=== PATIENT | female | born 1985 | race Asian ===

== ENCOUNTER 2016-07-13 21:40 | Inpatient (IN) | payer BC ==
[~2016-07-13] VITALS: Ht 162.6 cm; Wt 88.0 kg
[2016-07-13] MEDS ORDERED: LR 1,000 ML IV SCH ×2 (22:38→22:46)
[2016-07-13] MEDS ORDERED: NIFEdipine 10 MG CAPSULE PO SCH (22:45)
[2016-07-13] MEDS ORDERED: AMPICILLIN SODIUM 2 GM in NS 100 ML IV ONE (23:00)
[2016-07-13 23:02] LABS: BASOPHILS # (AUTO) 0.2 K/uL (0.0-0.2); BASOPHILS % (AUTO) 2.3 % (0.0-2.0); EOSINOPHILS # (AUTO) 0.1 K/uL (0.0-0.4); EOSINOPHILS % (AUTO) 0.6 % (0.0-4.0); HEMATOCRIT 32.2 % (36-48); HEMOGLOBIN 10.4 g/dL (12.0-16.0); LYMPHOCYTES # (AUTO) 2.2 K/uL (1.0-5.5); LYMPHOCYTES % (AUTO) 22.1 % (20.5-51.5); MEAN CORPUSCULAR HEMOGLOBIN 24 pg (27-31); MEAN CORPUSCULAR HGB CONC 32 % (32-36); MEAN CORPUSCULAR VOLUME 73 fL (79.0-98.0); MONOCYTES # (AUTO) 0.5 K/uL (0.0-1.0); MONOCYTES % (AUTO) 5.1 % (1.7-9.3); NEUTROPHILS % (AUTO) 69.9 % (40.0-70.0); PLATELET COUNT (AUTO) 293 K/uL (130-430); RED BLOOD CELL COUNT(AUTO) 4.42 MIL/uL (4.2-6.2); RED CELL DISTRIBUTION WIDTH 15.4 % (9.0-15.0)
[2016-07-13] MEDS ORDERED: NIFEdipine 10 MG CAPSULE PO ONE (23:04)
[2016-07-13] MEDS ORDERED: BETAMET ACET/BETAMET NA PH 30 MG/5 ML VIAL IM ONE (23:05)
[2016-07-13] MEDS ORDERED: AMPICILLIN SODIUM 2 GM VIAL ONE (23:06)
[2016-07-13] MEDS ORDERED: INSULIN REGULAR, HUMAN 100 UNITS/ML, 10 ML VIAL SUBCUT ONE (23:15)
[2016-07-13] MEDS ORDERED: INSULIN REGULAR, HUMAN 100 UNITS/ML, 10 ML VIAL ONE (23:28)
[2016-07-13] MEDS: BETAMET ACET/BETAMET NA PH 30 MG/5 ML VIAL IM SCH (23:30)
[2016-07-14] MEDS ORDERED: MAGNESIUM SULFATE IN WATER 500 ML IV ONE ×2 (00:13→08:30)
[2016-07-14] MEDS ORDERED: MAGNESIUM SULFATE IN WATER 500 ML IV PRN (00:15)
[2016-07-14] MEDS ORDERED: MAGNESIUM SULFATE IN WATER 100 ML IV ONE ×2 (00:15→00:16)
[2016-07-14 01:32] VITALS: BP 146/86; PULSE 99; RESP 16; TEMP 97.1
[2016-07-14] MEDS ORDERED: NIFEdipine 10 MG CAPSULE PO SCH (03:00)
[2016-07-14] MEDS: AMPICILLIN SODIUM 1 GM in NS 50 ML IV SCH ×4 (03:32→15:38)
[2016-07-14] MEDS ORDERED: AMPICILLIN SODIUM 1 GM VIAL ONE ×2 (03:33→07:17)
[2016-07-14] MEDS ORDERED: BETAMET ACET/BETAMET NA PH 30 MG/5 ML VIAL IM ONE (08:30)
[2016-07-14] MEDS: BETAMET ACET/BETAMET NA PH 30 MG/5 ML VIAL IM SCH (10:15)
[2016-07-14] MEDS ORDERED: LR 1,000 ML IV ONE ×2 (10:53→22:20)
[2016-07-14] MEDS ORDERED: CEFAZOLIN 2 GM IVPB PREMIX 50 ML IV ONE ×2 (11:00→21:21)
[2016-07-14 18:42] LABS: BILIRUBIN,URINE NEGATIVE (NEGATIVE); BLOOD, URINE 1+ (NEGATIVE); CLARITY/URINE CLEAR (CLEAR); COLOR,URINE YELLOW (YELLOW); GLUCOSE,URINE NEGATIVE (NEGATIVE); KETONES,URINE 3+ (NEGATIVE); LEUKOCYTE ESTERASE ,URINE NEGATIVE (NEGATIVE); NITRITE, URINE NEGATIVE (NEGATIVE); PROTEIN URINE NEGATIVE (NEGATIVE); UROBILINOGEN,URINE 0.2 (0.2-1.0)
[2016-07-14 19:17] LABS: BACTERIA,URINE FEW /HPF (None Seen); MUCUS,URINE 1+ /LPF (None Seen); WBC,URINE 0-3 /HPF (0-3)
[2016-07-14 19:25] LABS: BARBITURATE, URINE NEGATIVE (NEG <=200); BENZODIAZEPINE, URINE NEGATIVE (NEG <=150); CANNABINOID, URINE NEGATIVE (NEG <=50); COCAINE, URINE NEGATIVE (NEG <=150); METHAMPHETAMINES SCREEN,URINE NEGATIVE (NEG <=500); OPIATE, URINE NEGATIVE (NEG <=100); PHENCYCLIDINE SCREEN,URINE NEGATIVE (NEG <=25); UR TRICYCLIC ANTIDEPRESSANTS NEGATIVE (NEG <=300); URINE AMPHETAMINE NEGATIVE (NEG <=500); URINE METHADONE NEGATIVE (NEG <=200); URINE OXYCODONE SCREEN NEGATIVE (NEG <=100); URINE PROPOXYPHENE SCREEN NEGATIVE (NEG <=300)
[2016-07-14] MEDS ORDERED: fentaNYL CITRATE/PF 100 MCG/2 ML AMP ONE (20:00)
[2016-07-14] MEDS ORDERED: MORPHINE SULFATE 10MG/10ML PF AMP ONE (20:00)
[2016-07-14] MEDS ORDERED: TEMAZEPAM 15 MG CAPSULE PO PRN (21:00)
[2016-07-14] MEDS ORDERED: METOCLOPRAMIDE HCL 10 MG/2 ML VIAL IVP ONE (21:21)
[2016-07-14] MEDS ORDERED: NS IRRIG SOLN 1000 ML IR ONE (21:21)
[2016-07-14] MEDS ORDERED: DEXAMETHASONE SOD PHOSPHATE 4 MG/ML VIAL IVP ONE (21:21)
[2016-07-14] MEDS ORDERED: OXYTOCIN 10 UNIT/ML VIAL IV ONE (21:21)
[2016-07-14] MEDS ORDERED: LR 1,000 ML IV.SOLN IV ONE (21:21)
[2016-07-14] MEDS ORDERED: LR 1,000 ML IV SCH (22:28)
[2016-07-14] MEDS ORDERED: OXYTOCIN/NORMAL SALINE 1,000 ML IV ONE ×2 (22:28→22:52)
[2016-07-14] MEDS ORDERED: ePHEDrine sulfate 50 MG/ML VIAL IVP PRN (22:30)
[2016-07-14] MEDS ORDERED: NALBUPHINE HCL 10 MG/ML AMP IVP PRN (22:30)
[2016-07-14] MEDS ORDERED: LANOLIN 7 GM OINT. TP PRN (22:30)
[2016-07-14] MEDS ORDERED: HYDROcodone/ACETAMIN 5-325 MG TAB (NORCO/ VICODIN) PO PRN (22:30)
[2016-07-14] MEDS ORDERED: SIMETHICONE 80 MG TAB.CHEW PO PRN (22:30)
[2016-07-14] MEDS ORDERED: DOCUSATE SODIUM 100 MG CAPSULE PO PRN (22:30)
[2016-07-14] MEDS ORDERED: MEASLES,MUMPS&RUBELLA VACC/PF 12500 UNIT/0.5 ML VIAL SUBQ PRN (22:30)
[2016-07-14] MEDS ORDERED: KETOROLAC TROMETHAMINE 30 MG VIAL IM PRN (22:30)
[2016-07-14] MEDS ORDERED: BISACODYL 10 MG/SUPPOSITORY RC PRN (22:30)
[2016-07-14] MEDS ORDERED: RHO(D) IMMUNE GLOBULIN/MALTOSE 1500 UNITS/1.3 ML (WINHRO) IM PRN (22:30)
[2016-07-14] MEDS ORDERED: NALOXONE HCL 0.4 MG/ML AMP (NARCAN) IVP PRN (22:30)
[2016-07-14] MEDS ORDERED: OXYCODONE/ACETAMINOPHEN 5-325 TABLET PO PRN ×2 (22:30)
[2016-07-14] MEDS ORDERED: DIPHENHYDRAMINE INJ 50 MG/ML VIAL IVP PRN (22:30)
[2016-07-14] MEDS ORDERED: fentaNYL CITRATE/PF 100 MCG/2 ML AMP IVP PRN (22:30)
[2016-07-14] MEDS ORDERED: SENNOSIDES/DOCUSATE SODIUM 1 TAB TABLET(SENOKOT-S) PO PRN (22:30)
[2016-07-14] MEDS ORDERED: ONDANSETRON HCL 4 MG/2 ML VIAL IVP PRN ×2 (22:30)
[2016-07-14] MEDS ORDERED: ANUSOL 1 EA SUPP.RECT (PREPARATION H) RC PRN (22:30)
[2016-07-14 22:46] VITALS: BP 118/71
[2016-07-15] MEDS: CEFAZOLIN 1 GM IVPB PREMIX 50 ML IV SCH ×3 (00:35→12:11)
[2016-07-15] MEDS: KETOROLAC TROMETHAMINE 30 MG VIAL IVP SCH ×2 (05:56→12:11)
[2016-07-15 06:53] LABS: HEMATOCRIT 23.6 % (36-48); HEMOGLOBIN 7.5 g/dL (12.0-16.0); MEAN CORPUSCULAR HEMOGLOBIN 23 pg (27-31); MEAN CORPUSCULAR HGB CONC 32 % (32-36); MEAN CORPUSCULAR VOLUME 72 fL (79.0-98.0); PLATELET COUNT (AUTO) 326 K/uL (130-430); RED BLOOD CELL COUNT(AUTO) 3.28 MIL/uL (4.2-6.2)
[2016-07-15 07:06] LABS: WHITE BLOOD COUNT (AUTO) 15.4 K/uL (4.8-10.8)
[2016-07-15 09:26] LABS: ATYPICAL LYMPHOCYTES % 0 % (0-0); BAND % (MANUAL) 2 % (0-6); BASOPHILS % (MANUAL) 0 % (0-2); EOSINOPHILS % (MANUAL) 0 % (0-7); LYMPHOCYTES % (MANUAL) 8 % (20-46); MONOCYTES % (MANUAL) 7 % (0-11)
[2016-07-16] MEDS ORDERED: IBUPROFEN 600 MG TABLET PO SCH
== END 2016-07-15 20:20 | disposition home or self-care (01) | DRG 765 ==
LOC: OBSVTOIN 21:40 → SPU 21:40
PROVIDERS: ADMIT Specialist; ATTEND Specialist
PROC: 10D00Z1 Extraction of Products of Conception, Low, Open Approach (ICD-10-PCS; principal; 2016-07-15)
DX: O32.1XX0 Maternal care for breech presentation, not applicable or unspecified (principal); D62 Acute posthemorrhagic anemia; O62.1 Secondary uterine inertia; Z37.0 Single live birth; Z3A.32 32 weeks gestation of pregnancy; O99.52 Diseases of the respiratory system complicating childbirth; Z86.32 Personal history of gestational diabetes; J45.909 Unspecified asthma, uncomplicated; O99.02 Anemia complicating childbirth
CPT/HCPCS: 36415; 76815; 80307; 81000-TC; 82947-TC; 82962; 85007; 85025; 85027; 86592; 86886; 86900; 86901; 94760; J0290; J0690; J0702; J1100; J1815; J1885; J2274; J2590; J2765; J3010; J3475; J7060; J7120